=== PATIENT | female | born 1985 | race Caucasian/White ===

== ENCOUNTER → 2016-11-16 | Day surgery (SDC) | payer OTHER ==
[~2016-11-16] VITALS: Ht 185.4 cm; Wt 102.1 kg
--- NOTE | 2016-11-16 14:23 | Operative Report ---
Operative/Inv Procedure Report Surgery Date: 11/16/16 Name of Procedure: Suction dilation and curettage Pre-Operative Diagnosis: Blighted ovum Post-Operative Diagnosis: Blighted ovum Estimated Blood Loss: scant Surgeon/Heading And Priming Operator: Mira Chin DO Anesthesia: TIVA IV Fluids: 600 mL crystalloid Urine Output: NA Drains: None Specimens: Products of conception Complications: None Condition: Good Operative Indication: This patient is a 31-year-old 3 para 0 who presents with a blighted ovum at approximately 8 weeks gestation she attempted medical management but did not pass any tissue. She desires to proceed surgical management. The patient was counseled the risks, benefits, alternatives of the procedure including risk of bleeding, infection, uterine perforation, injury to other organs, need for additional procedure should competition occur, Asherman syndrome, incompetent cervix, incomplete procedure. She stated verbal understanding of all the above and desires to proceed. Operative/Procedure Note Note: The patient was taken to the operating room where anesthesia was obtained without difficulty. She was placed in the dorsal lithotomy position and examined under anesthesia. She had an approximately 10 week size uterus. Prepared and draped in usual sterile fashion. A Graves speculum was placed inside the patient's vagina and a paracervical block was performed with 10 mL of 1% lidocaine plain. She was noted to have a at approximately 11:00 on her cervix that was whitish. I suspect that this is from a previous colposcopy. It appeared to be healing tissue and possibly Monsel's or silver nitrate. The cervix was then easily dilated to 10 mm with Hegar dilators. Uterine sound length was 11 mm. A 10 mm curved rigid suction curette was then introduced into the uterine cavity without difficulty. Contents of the uterus were aspirated without difficulty. A sharp curettage was then performed until a gritty texture was noted. In the suction curette was then reintroduced to remove any remaining products and debris. Tissue will be sent fresh for chromosomal studies and for gross study. All instruments were removed from patient's uterus, cervix, vagina and hemostasis of tenaculum sites was achieved with silver nitrate. The patient tolerated the procedure well and was taken to the recovery area in stable condition. Findings: 10 WEEK SIZED UTERUS, MODERATE PRODUCTS OF CONCEPTION Discharge Disposition: Same Day Admissions
== END ==
LOC: STS 02:58
DX: O02.0 Blighted ovum and nonhydatidiform mole (principal); F17.200 Nicotine dependence, unspecified, uncomplicated
CPT/HCPCS: 88261; 88305; J2250

== ENCOUNTER → 2016-12-12 | Day surgery (SDC) | payer OTHER ==
[~2016-12-12] VITALS: Ht 185.4 cm; Wt 99.8 kg
[2016-12-12 12:29] LABS: ABSOLUTE BASOPHIL COUNT 0.1 /CUMM (0.0-0.2); ABSOLUTE EOSINOPHIL COUNT 0.1 /CUMM (0.0-0.7); ABSOLUTE GRANULOCYTE CT 4.6 /CUMM (1.4-6.5); ABSOLUTE LYMPH COUNT 2.5 /CUMM (1.2-3.4); ABSOLUTE MONOCYTE COUNT 0.5 /CUMM (0.10-0.60); BASOPHIL % 0.7 % (0.0-2.0); EOSINOPHIL % 1.2 % (0-5); GRANULOCYTE % 59.5 % (42.2-75.2); HEMATOCRIT 36.6 % (37-47); MEAN CORPUSCULAR HGB 30.7 PG (27.0-31.0); MEAN CORPUSCULAR HGB CONC 33.8 G/DL (33.0-37.0); MEAN CORPUSCULAR VOLUME 90.8 FL (81.0-99.0); MEAN PLATELET VOLUME 7.8 FL (7.4-10.4); PLATELET COUNT 269 /CUMM (130-400); RED BLOOD CELL CT 4.03 /CUMM (4.20-5.40); WHITE BLOOD CELL COUNT 7.8 /CUMM (4.8-10.8)
--- NOTE | 2016-12-12 14:41 | Operative Report ---
Operative/Inv Procedure Report Surgery Date: 12/12/16 Name of Procedure: laser vaporization of the cervical transformation zone Pre-Operative Diagnosis: cin2 Post-Operative Diagnosis: same Estimated Blood Loss: scant Surgeon/Oven Technician: JOEL COON,JOSEPH Asif Anesthesia: tiva Specimens: none Complications: none Operative/Procedure Note Note: After the induction of anesthesia the patient was placed in the dorsal supine position in high stirrups. The patient was draped in the usual sterile fashion and wet towel drapes were placed over the sterile drapes, appropriate eye protection was instituted. The CO2 laser was connected to the microscope cervix was prepped with Lugol's solution. The cervix was circumferentially infiltrated with 5 mL of Nesacaine with epinephrine. The transformation zone was vaporized to a depth of 6 mm. Hemostasis was achieved with Monsel solution. Patient was awakened and moved to recovery room in good condition Discharge Disposition: PACU
== END ==
LOC: STS 10-24 07:00
PROVIDERS: Obstetrics & Gynecology
DX: N87.1 Moderate cervical dysplasia (principal)
CPT/HCPCS: 36415; 81025; J2250; J2405